=== PATIENT | male | born 1955 | race Caucasian/White ===

== ENCOUNTER 2025-03-17 06:14 | Day surgery (SDC) | payer MEDICARE, OTHER, SELFPAY ==
[2025-03-17 08:29] VITALS: BMI 29.0
[2025-03-17 08:38] VITALS: BP 139/86
[2025-03-17 08:40] VITALS: BMI 29.0
[2025-03-17 10:46] VITALS: BP 106/77
[2025-03-17 11:00] VITALS: BP 121/75
[2025-03-17 11:15] VITALS: BP 115/78
== END 2025-03-17 11:45 | disposition home or self-care (01) ==
LOC: SDS 06:14
PROVIDERS: ATTENDING PHYSICIAN Internal Medicine Gastroenterology; FAMILY PHYSICIAN Family Medicine
DX: K86.1 Other chronic pancreatitis (principal); K86.89 Other specified diseases of pancreas; K86.3 Pseudocyst of pancreas; R93.2 Abnormal findings on diagnostic imaging of liver and biliary tract
CPT/HCPCS: 43237